=== PATIENT | female | born 1980 ===

== ENCOUNTER → 2020-08-19 | Outpatient (CLI) | payer OTHER | LOC: EDBD 10:45 → LAB 10:45 | PROVIDERS: ATTEND Specialist | DX: Z01.812 Encounter for preprocedural laboratory examination (principal); Z20.828 Contact with and (suspected) exposure to other viral communicable diseases ==

== ENCOUNTER → 2020-08-24 | Outpatient (CLI) | payer OTHER ==
[~2020-08-24] VITALS: Ht 167.6 cm; Wt 77.1 kg
[~2020-08-24] MED LIST: ADVAIR 500-501 EACH INH; ALLEGRA ALLERG180 MG PO; CARAFATE 1 GM TA1 GM PO; COMBIVENT INH; DULOXETINE HCL60 MG PO; FLONASE 0.05%50 MCG NASAL; GABAPENTIN600 M1 PO; INCRUSE ELLI62.5 MCG INH; IPRATROPIUM BRO30 ML NASAL; LEVOXYL50 MCG PO; OMEPRAZOLE40 MG PO; ONDANSETRON HCL4 M2 PO; SINGULAIR 10 MG10 MG PO; VALTREX 500 MG500 MG PO; VITAMIN D325 MC1 PO; ZANAFLEX4 M2 PO
--- NOTE | 2020-08-29 14:43 | P ---
[facility] [place] [address] PROCEDURE REPORT Name: AUGUST MALONEY Room #: REG [facility] Re#: [id number] Admission: 08/24/20 Attend Phys: Asa Rutherford Discharge: Date of : 78 Report #: [id number] THIS REPORT FOR: cc: FAM - Family physician unknown FAM - Family physician unknown Asa Crews MD ~ CC: Asa Crews [facility] unknown Priya Alcaraz MD DATE OF SERVICE: 08/24/2020 PROCEDURE PERFORMED: Colonoscopy with biopsies. HISTORY OF PRESENT ILLNESS: The patient is a 40-year-old female with a history of Crohn disease, status post small bowel resection in the past. Last colonoscopy in 2014 was essentially normal. She has not been able to tolerate Remicade, Humira and Imuran in the past. She is on no medications for Crohn disease at this time. Also, has a possible history of irritable bowel syndrome, diarrhea dependent. She averages 5-6 loose stools per day. She denies any blood in her stools. Upper endoscopy was just performed that was normal. She does have a family history of colon cancer in a great grandfather. DESCRIPTION OF PROCEDURE: The risks and benefits of the procedure were explained to the patient, those risks including but not limited to bleeding, perforation and the risk of sedation. She understood these risks and gave informed consent. Sedation was given using propofol per anesthesia. Next, a digital rectal exam was initially performed, which was normal. Next, using a standard Olympus colonoscope, the scope was placed in the patient's anus and advanced under direct vision into the right colon, at which point, the surgical anastomosis was noted. I was able to intubate the terminal ileum, which was normal in appearance other than a single 3 mm possible ulcer was noted. No evidence of bleeding. Biopsies were obtained. Otherwise, the surgical anastomosis was well healed, widely patent. The scope was then brought back up into the patient's colon. The remaining transverse, descending and sigmoid colon were all normal. Random biopsies were obtained to rule out the possibility of microscopic colitis. In the rectum, a 4 mm sessile polyp was noted. This was removed with cold forceps. On retroflexion, no abnormalities were noted. The scope was then withdrawn and the procedure terminated. The patient tolerated the procedure well. IMPRESSION: 1. Possible small ulceration in the terminal ileum, otherwise normal-appearing ileum visualized. 2. Surgical changes of right hemicolectomy. 3. Small rectal polyp. [address] [address] PROCEDURE REPORT Name: AMARARADHAPAGEAUGUST Room #: REG [facility] Re#: [id number] Admission: 08/24/20 Attend Phys: Asa Rutherford Discharge: Date of : 78 Report #: [id number] 4. Otherwise, normal colonoscopy. RECOMMENDATIONS: 1. Await biopsy results. 2. We will discuss options with the patient regarding treatment after biopsy results are returned. Thank you for allowing me to participate in her care. <ELECTRONICALLY SIGNED> By: Asa Crews MD 08/29/20 1443 [id number] [id number] Asa Crews MD /nt
--- NOTE | 2020-08-29 14:43 | P ---
[facility] [place] [place] [address] PROCEDURE REPORT Name: AUGUST MALONEY Room #: REG [facility] Re#: [id number] Admission: 08/24/20 Attend Phys: Asa Rutherford Discharge: Date of : 78 Report #: [id number] THIS REPORT FOR: cc: FAM - Family physician unknown FAM - Family physician unknown Asa Crews MD ~ CC: Asa Crews [facility] unknown Priya Alcaraz MD DATE OF SERVICE: 08/24/2020 PROCEDURE PERFORMED: Upper endoscopy with biopsies. HISTORY OF PRESENT ILLNESS: The patient is a 40-year-old female with a history of gastroesophageal reflux disease and Crohn's disease. She has undergone previous small bowel resection for active Crohn's disease in the past, was followed by my partner in the past, but was unable to tolerate Remicade, Imuran and Humira. She is on Prilosec on a daily basis. She denies any dysphagia or odynophagia. No nausea or vomiting. She does report 6 loose bowel movements per day. Plan is for EGD and colonoscopy today. DESCRIPTION OF PROCEDURE: The risks and benefits of the procedure were explained to the patient, those risks including but not limited to bleeding, perforation and the risk of sedation. She understood these risks and gave informed consent. Sedation was given using propofol per Anesthesia. Next, using a standard Olympus upper endoscope, the scope was placed in the patient's mouth and advanced under direct vision through the esophagus, stomach and into the second portion of the duodenum. The esophagus was normal throughout. The GE junction was normal. Overall, the gastric mucosa was normal. The pylorus was normal and patent. The duodenal bulb, first and second portion were all normal. Random biopsies were obtained to rule out the possibility of celiac sprue. The scope was then withdrawn and the procedure terminated. The patient tolerated the procedure well. IMPRESSION: Normal upper endoscopy. RECOMMENDATIONS: 1. Await biopsy results. 2. Continue daily PPI therapy. 3. We will proceed with colonoscopy next today. [address] [address] PROCEDURE REPORT Name: AUGUST MALONEY Room #: REG [facility] Grimaldo#: [id number] Admission: 08/24/20 Attend Phys: Asa Rutherford Discharge: Date of : 78 Report #: [id number] Thank you for allowing me to participate in her care. <ELECTRONICALLY SIGNED> By: Asa Crews MD 08/29/20 1443 0949 [id number] Asa Crews MD /nt
--- NOTE | 2020-08-30 11:07 | PATH ---
[facility] [place] [address] PATHOLOGY RPT PROCEDURE Name: MEAGHAN MALONEYDALIA Vail Room #: REG [facility] Mikey.#: [id number] Admission: 08/24/20 Date of : 78 Discharge: Report #: [id number] Path Case #: [id number] [facility] Accession Number: [id number] . 01 Material submitted: . PART A: duodenum - DUODENAL R/O SPURE PART B: ileum - ULCER AT TERMINAL ILEUM HX CHRON'S PART C: colon - RANDOM COLON BIOPSIES R/O MICROSCOPIC COLITIS PART D: rectum - RECTAL POLYP . 01 Clinical history: . CHRON'S; RECTAL POLYP, DIARRHEA . 02 Diagnosis: A. Small bowel "duodenum", endoscopic biopsy: - Duodenal mucosa without significant pathologic alteration. . B. Small bowel "ulcer terminal ileum" endoscopic biopsy: - Ileal mucosa demonstrating surface ulceration, with associated atrophic villi, focal cryptitis, interstitial hemorrhage, expanded lamina propria with increased eosinophils and neutrophils, and focal crypt architectural distortion. - Negative for dysplasia and malignancy. - Please see comment. . C. Large bowel "random", endoscopic biopsy: - Large bowel mucosa without significant pathologic alteration. . D. Large bowel "rectal polyp", endoscopic biopsy: - Hyperplastic polyp; negative for dysplasia and malignancy. (MLK:pit; 08/29/2020) [facility] 08/30/2020 1051 Local . 02 Comment: Biopsy of the terminal ileum shows an area of mucosal surface erosion with focal crypt architectural distortion, cryptitis, and an increase in cellularity of the lamina propria with prominent neutrophils and eosinophils. The patient's history of Crohn's disease is noted. The current findings are compatible with a chronic active enteritis. The differential diagnosis includes chronic idiopathic inflammatory bowel disease versus medication induced injury versus less likely an infectious etiology. Please correlate clinically. (MLK:geovani; 08/29/2020) . 02 Electronically signed: . Leobardo Sales MD, Pathologist NPI- [id number] [place] [address] PATHOLOGY RPT PROCEDURE Name: AUGUST MALONEY Room #: REG CLMattie Grimaldo#: [id number] Admission: 08/24/20 Date of : 78 Discharge: Report #: [id number] Path Case #: [id number] . 01 Gross description: . A. Received in formalin labeled "Aditya Thao duodenal rule out sprue" are two martel-brown soft tissue fragments measuring in aggregate 1.0 x 0.4 x 0.1 cm. The specimen is submitted entirely in A1. . B. Received in formalin labeled "August Maloney, ulcer at terminal ileum history of Crohn's" are multiple martel-brown soft tissue fragments measuring in aggregate 0.5 x 0.5 x 0.1 cm. The specimen is submitted entirely in B1. . C. Received in formalin labeled "August Maloney, random colon biopsies" are multiple martel-brown soft tissue fragments measuring in aggregate 1.2 x 0.6 x 0.1 cm. The specimen is submitted entirely in C1. . D. Received in formalin labeled "August Maloney, rectal polyp" are multiple martel-brown soft tissue fragments measuring in aggregate 0.4 x 0.4 x 0.1 cm. The specimen is submitted entirely in D1. ([facility]; 08/26/2020) [facility] 08/26/2020 1300 Local . 02 Pathologist provided ICD-10: K63.3, K62.1, K50.90, R19.7 . 02 CPT . 979002, [id number], 295228, [id number] Specimen Comment: A courtesy copy of this report has been sent to [phone] Specimen Comment: [id number] Specimen Comment: Report sent to / DR GUAJARDO Performed at: [address], [place], [place] [id number] MD Dmitriy Olson MD Phone: [phone] Performed at: [address] [id number] MD Gisella Coates MD Phone: [phone]
== END | disposition home or self-care (01) ==
LOC: GI → EDBD → GI 07:46
PROVIDERS: ATTEND Specialist
DX: R19.7 Diarrhea, unspecified (principal); K63.3 Ulcer of intestine; K62.1 Rectal polyp; K21.9 Gastro-esophageal reflux disease without esophagitis; K50.90 Crohn's disease, unspecified, without complications; E03.9 Hypothyroidism, unspecified; D64.9 Anemia, unspecified; J45.909 Unspecified asthma, uncomplicated; F32.9 Major depressive disorder, single episode, unspecified; F41.9 Anxiety disorder, unspecified; M79.7 Fibromyalgia; Z98.890 Other specified postprocedural states; Z79.899 Other long term (current) drug therapy; Z90.49 Acquired absence of other specified parts of digestive tract; Z88.0 Allergy status to penicillin; Z88.8 Allergy status to other drugs, medicaments and biological substances
CPT/HCPCS: 62110; 62900